=== PATIENT | male | born 1950 | race Caucasian/White ===

== ENCOUNTER 2022-11-02 07:08 | Outpatient (CLI) | payer MEDICARE, BC, SELFPAY | END 2022-11-02 07:09 | disposition home or self-care (01) | LOC: INJ CL 07:11 | PROVIDERS: PCP Family Medicine; Visit Provider Family Medicine | DX: M54.16 Radiculopathy, lumbar region (principal); M51.36 Other intervertebral disc degeneration, lumbar region | CPT/HCPCS: 62323; J0702; Q9966 ==

== ENCOUNTER 2024-01-23 07:39 | Outpatient (CLI) | payer MEDICARE, BC, SELFPAY ==
--- NOTE | 2024-01-23 09:09 | W.ANESCHARGE ---
Anesthesia Charges Start Date/Time Anesthesia Start Date: 01/23/24 Anesthesia Start Time: 08:50 Stop Date/Time Anesthesia Stop Date: 01/23/24 Anesthesia Stop Time: 09:03
--- NOTE | 2024-01-23 09:39 | W.ANESCHARGE ---
Anesthesia Charges Start Date/Time Anesthesia Start Date: 01/23/24 Anesthesia Start Time: 08:50 Stop Date/Time Anesthesia Stop Date: 01/23/24 Anesthesia Stop Time: 09:03 Summary Extremes of Age - Over 70 or under 1: MDA
== END 2024-01-23 07:40 | disposition home or self-care (01) ==
LOC: OP CLINIC 07:40
PROVIDERS: PCP Family Medicine; Visit Provider Internal Medicine Gastroenterology
DX: Z12.11 Encounter for screening for malignant neoplasm of colon (principal); Z86.010 Personal history of colon polyps
CPT/HCPCS: 00811; 00812; 45378; 99100; J2704

== ENCOUNTER 2024-05-08 07:45 | Outpatient (CLI) | payer MEDICARE, BC, SELFPAY | END 2024-05-08 07:46 | disposition home or self-care (01) | LOC: INJ CL 07:46 | PROVIDERS: PCP Family Medicine; Visit Provider Family Medicine | DX: M54.16 Radiculopathy, lumbar region (principal); M51.36 Other intervertebral disc degeneration, lumbar region | CPT/HCPCS: 62323; J0702; Q9966 ==

== ENCOUNTER 2024-05-29 13:00 | Emergency (ER) | payer MEDICARE, BC, SELFPAY ==
[2024-05-29] VITALS (38 sets, daily range): BP systolic 137–170; BP diastolic 81–103; PULSE 100–130; RESP 18–20; TEMP 36.9; O2SAT 93–98; BMI 35.4
[2024-05-29] MEDS: EPINEPHrine 0.3 MG PEN IM (13:05)
[2024-05-29] MEDS: 0.9 % SODIUM CHLORIDE 500 ML 500 ML 1000 ML IV (13:10)
[2024-05-29] MEDS: diphenhydrAMINE 50 MG/ML inj 25 MG IVP (13:13)
[2024-05-29] MEDS: FAMOTIDINE 10 MG/ML inj 20 MG IVP (13:18)
--- NOTE | 2024-05-29 13:19 | ED.ALLEREA ---
HPI - Allergic Reaction General Date Seen: 05/29/24 Chief complaint: Allergic Reaction Stated complaint: swarm of bees - difficulty breathing Time Seen by Provider: 05/29/24 13:19 Source: patient, family and RN notes reviewed Mode of arrival: ambulatory Limitations: no limitations History of Present Illness HPI narrative: Mr. Varela is a 73-year-old gentleman with history of hypertension, hyperlipidemia who is brought to the emergency room by his after being stung multiple times by honey bees. Patient states that he was riding a lawn more near his hive of honey bees and he had a few stings. This was on his face neck and in his scalp. He really did not have a significant reaction and has been stung before without problems. States that he then pauses and when he got back on the lawnmower and turned on a large amount of be came and attacked him. They were mostly in his scalp and he had to run into the shed and put his head in a sink and water in order to get them to go away. He received 2 Benadryl tablets at home but had increasing swelling and stated that it was difficult to swallow. He had swelling around his left eye, pain in his scalp and was feeling discomfort in his abdomen that he stated felt like reflux. He has had a history of reflux and esophagitis but takes omeprazole and this has resolved the issue with a repeat endoscopy that looked much improved. Here in the emergency room Mr. Varela states that his tongue is tingling, he would not be able to swallow any water and he has epigastric discomfort as well as swelling of his face. He has never had an allergic reaction to bee stings in the past. Related Data Home Medications ?Medication ?Instructions ?Recorded ?Confirmed amlodipine 5 mg tablet 5 mg PO DAILY 01/31/23 02/02/23 enalapril 10 1 tab PO DAILY 01/31/23 02/02/23 mg-hydrochlorothiazide 25 mg tablet omeprazole 20 mg capsule,delayed 20 mg PO DAILY 01/31/23 02/02/23 release rosuvastatin 40 mg tablet 40 mg PO DAILY 01/31/23 02/02/23 Previous Rx's ?Medication ?Instructions ?Recorded epinephrine 0.3 mg/0.3 mL 0.3 mg (0.3 mL) IM Q5-15M PRN #2 ea 05/29/24 injection, auto-injector (EpiPen 2-Tj) prednisone 20 mg tablet 20 mg PO BID #8 tabs 05/29/24 Allergies Allergy/AdvReac Type Severity Reaction Status Date / Time atorvastatin Allergy Unknown Verified 05/08/24 08:23 Review of Systems Status of ROS Reports: 10 or more systems reviewed and unremarkable except as noted in History and below [facility] Medical History Lumbar disc herniation ?M51.26 - Other intervertebral disc displacement, lumbar region (ICD-10) Back injury (~2004) ?S39.92XA - Unspecified injury of lower back, initial encounter (ICD-10) GERD (gastroesophageal reflux disease) ?K21.9 - Gastro-esophageal reflux disease without esophagitis (ICD-10) Hypercholesteremia ?E78.00 - Pure hypercholesterolemia, unspecified (ICD-10) Hypertension ?I10 - Essential (primary) hypertension (ICD-10) Surgical History History of arthroscopy of left shoulder (09/12/15) ?Z98.890 - Other specified postprocedural states (ICD-10) Family History Brother Colon cancer Other Lung cancer Social History Narrative: 6 siblings former smoker Smoking Status: Former smoker What tobacco products do you use: cigarettes Smoking quit date/years: >15 years ago Exam Narrative: Exam Narrative: Patient is alert and oriented. He has mild global facial fullness swelling in the periorbital area on the left swelling of his right ear and area of edema in his right posterior scalp. As IVs were being placed I did use a credit card to scrape all areas of exposed skin to ensure removal of the honey bee sting hers. EOM is full. He has some scleral injection on the left. Neck is supple. He has a slight lisp and raspiness of the voice. He has frequent episodes of throat clearing. His heart is with a tachycardic rate around 130 but it is regular. His lungs are clear bilaterally without wheezing. His but abdomen is soft and nontender. He has a rash that is erythematous and light non papular on his left upper thigh and across his upper chest. He is moving all extremities. Const: Vital Signs, click to edit/add: Vital Signs - 24 hr 05/29/24 13:12 05/29/24 13:15 05/29/24 13:18 Temperature 98.5 F Pulse Rate 128 H 123 H Pulse Rate [Pulse Oximeter] 130 H Respiratory Rate 20 Blood Pressure Blood Pressure [Le ft Upper Arm] 160/84 H Pulse Oximetry 95 96 95 Oxygen Delivery Me thod Room Air 05/29/24 13:20 05/29/24 13:30 05/29/24 13:31 Temperature Pulse Rate 122 H 117 H 121 H Pulse Rate [Pulse Oximeter] Respiratory Rate Blood Pressure 144/86 H 147/84 H Blood Pressure [Le ft Upper Arm] Pulse Oximetry 95 96 96 Oxygen Delivery Me thod 05/29/24 13:45 05/29/24 14:00 05/29/24 14:01 Temperature Pulse Rate 118 H 114 H 119 H Pulse Rate [Pulse Oximeter] Respiratory Rate Blood Pressure 144/81 H Blood Pressure [Le ft Upper Arm] Pulse Oximetry 95 96 97 Oxygen Delivery Me thod 05/29/24 14:02 05/29/24 14:15 05/29/24 14:30 Temperature Pulse Rate 114 H 113 H 108 H Pulse Rate [Pulse Oximeter] Respiratory Rate Blood Pressure Blood Pressure [Le ft Upper Arm] Pulse Oximetry 98 96 94 Oxygen Delivery Me thod 05/29/24 14:31 05/29/24 14:45 05/29/24 15:00 Temperature Pulse Rate 109 H 107 H 105 H Pulse Rate [Pulse Oximeter] Respiratory Rate 18 Blood Pressure 139/86 Blood Pressure [Le ft Upper Arm] Pulse Oximetry 95 95 94 Oxygen Delivery Me thod 05/29/24 15:01 05/29/24 15:15 05/29/24 15:30 Temperature Pulse Rate 106 H 104 H 107 H Pulse Rate [Pulse Oximeter] Respiratory Rate Blood Pressure 137/81 Blood Pressure [Le ft Upper Arm] Pulse Oximetry 94 94 95 Oxygen Delivery Me thod 05/29/24 15:31 05/29/24 15:45 05/29/24 16:04 Temperature Pulse Rate 108 H 102 H 112 H Pulse Rate [Pulse Oximeter] Respiratory Rate 18 Blood Pressure 137/102 H Blood Pressure [Le ft Upper Arm] Pulse Oximetry 96 95 96 Oxygen Delivery Me thod 05/29/24 16:07 05/29/24 16:15 05/29/24 16:30 Temperature Pulse Rate 106 H 103 H 107 H Pulse Rate [Pulse Oximeter] Respiratory Rate Blood Pressure 169/89 H Blood Pressure [Le ft Upper Arm] Pulse Oximetry 96 95 93 Oxygen Delivery Me thod 05/29/24 16:31 05/29/24 16:32 05/29/24 16:45 Temperature Pulse Rate 105 H 104 H 107 H Pulse Rate [Pulse Oximeter] Respiratory Rate Blood Pressure 145/95 H Blood Pressure [Le ft Upper Arm] Pulse Oximetry 96 95 95 Oxygen Delivery Me thod Documenting provider has reviewed patient's vital signs: yes Course Course ED Course: At this time patient has sustained multiple honey bee stings with evidence of significant reaction and anaphylaxis given the fact that his voice has been altered and he is having a hard time swallowing. Immediately he is given epinephrine 0.3 mg IM. An IV has been placed in he will receive Pepcid 20 mg, dexamethasone 10 mg, Benadryl 25 mg as he is already taking 50 mg at home as well as 1 L of normal saline. Patient is placed on the teletypesetter monitor. He will be monitored for extended period likely the next 5 hours. Reevaluation(s) Reevaluation #1: Patient noted to be improved with resolution of his throat and tongue symptoms. His left eye is still quite edematous. I do palpate I do not palpate any stingers. Vital Signs Vital signs: Initial Vital Signs Pulse Rate 128 H 05/29/24 13:12 Pulse Oximetry 95 05/29/24 13:12 Vital Signs Pulse Rate 128 H 05/29/24 13:12 Pulse Oximetry 95 05/29/24 13:12 Temperature 98.5 F 05/29/24 13:18 Pulse Rate 107 H 05/29/24 16:45 Respiratory Rate 18 05/29/24 15:45 Blood Pressure 145/95 H 05/29/24 16:31 Pulse Oximetry 95 05/29/24 16:45 Oxygen Delivery Method Room Air 05/29/24 13:18 Medications Administered Medications: Discontinued Medications Generic Name Dose Route Start Last Admin Trade Name Freq PRN Reason Stop Dose Admin Dexamethasone 10 mg 05/29/24 13:20 05/29/24 13:20 Dexamethasone 4 Mg/Ml Vial IV 05/29/24 13:21 10 mg ONCE ONE Administration Diphenhydramine HCl 25 mg 05/29/24 13:20 05/29/24 13:13 Diphenhydramine 50 Mg/Ml Inj IVP 05/29/24 13:21 25 mg ONCE ONE Administration Epinephrine HCl 0.3 mg 05/29/24 13:23 05/29/24 13:05 Epinephrine 0.3 Mg Pen IM 05/29/24 13:24 0.3 mg ONCE ONE Administration Famotidine 20 mg 05/29/24 13:20 05/29/24 13:18 Famotidine 10 Mg/Ml Inj IVP 05/29/24 13:21 20 mg ONCE ONE Administration Sodium Chloride 500 mls @ 1,000 mls/hr 05/29/24 13:20 05/29/24 15:02 0.9 % Sodium Chloride 500 Ml IV 05/29/24 13:49 Infused .Q30M MAX Infusion MDM - Allergic Reaction MDM Narrative Medical decision making narrative: 1. Anaphylaxis-secondary to multiple bee stings. Has not been allergic to bee stings in the past but today had multiple stings in the head ears face. These areas were scraped to remove any stingers. Patient was given epinephrine 0.3 mg IM, 1 L of normal saline, dexamethasone 10 mg, Pepcid IV 20 mg as well as Benadryl 25 mg. At this time at 1707 patient is looking much improved. His facial swelling has almost entirely diminished with the exception of some residual swelling around the left eye. His heart rate is now down at 0107. He is going to be observed in the ED until approximately 1850 hours. He was then be discharged home as long as he does not have recurrence of symptoms. I would like patient to continue an antihistamine in the form of Benadryl or Zyrtec for the next 24 hours. I would like him to start prednisone 20 mg p.o. b.i.d. for 4 days starting tomorrow morning. I have also given a prescription for an EpiPen double pack. It is imperative that he not be around honey bees or get stung. 2. Disposition-home at 1830 if improved. This case was signed out to my colleague Dr. Payam Villegas. Return to the ER for any recurrence of symptoms. Medical Records Attestation: I reviewed the patient's medical records. Lab Data Attestation: I reviewed the patient's lab results. Labs: Lab Results 05/29/24 05/29/24 Range/Units 13:10 14:30 WBC 7.06 (4.50-11.00) K/uL RBC 5.02 (4.30-5.90) m/uL Hgb 16.1 (13.5-17.5) gm/dL Hct 48.7 (37.0-53.0) % MCV 97 (80-100) fL MCH 32 (26-34) pg MCHC 33 (32-36) gm/dL RDW Coeff of Mary Jo 12.6 (11.5-15.5) % Plt Count 191 (140-440) K/uL Neut % (Auto) 67.0 (42.0-72.0) % Lymph % (Auto) 23.9 (20-44) % Kern % (Auto) 7.6 (0.0-11.0) % Eos % (Auto) 1.4 (0.0-7.0) % Baso % (Auto) 0.0 (0.0-3.0) % Neut # (Auto) 4.72 (1.7-7.0) K/uL Lymph # (Auto) 1.69 (0.90-2.90) K/uL Kern # (Auto) 0.50 (0.00-0.90) K/UL Eos # (Auto) 0.10 (0.00-0.50) K/uL Baso # (Auto) 0.00 (0.00-0.30) K/uL Abs Immat Gran (auto) 0.01 (0.00-0.30) K/uL Imm/Tot Granulo (auto) 0.1 % Sodium 137 (135-149) mmol/L Potassium 3.6 (3.6-5.1) mmol/L Chloride 102 (96-114) mmol/L Carbon Dioxide 29 (20-32) mmol/L Anion Gap 6 L (7-15) mEq/L BUN 18 (7-30) mg/dL Creatinine 1.0 (0.5-1.5) mg/dL Estimated Creat Clear 66.77 Estimated GFR 80 ml/min Glucose 157 H (60-115) mg/dL Calcium 9.4 (8.4-10.6) mg/dL Magnesium 1.9 (1.5-2.6) mg/dL Total Bilirubin 0.7 (0.1-1.5) mg/dL AST 40 H (12-35) U/L ALT 49 (4-50) U/L Alkaline Phosphatase 75 (40-150) U/L C-Reactive Protein < 0.5 L (0.5-1.0) mg/dL Total Protein 7.4 (6.0-8.3) g/dL Albumin 4.7 (3.3-5.0) g/dL 25-OH Vitamin D Total 34 (30-80) ng/mL Lab Acknowledgement Test Added ECG Data Interpretation: EKG by my read shows sinus tachycardia at a rate of 1-1. Specific ST abnormality but otherwise no acute changes. QT and NE intervals within normal limits. Critical Care Time Critical Care Time Critical Care Time: Yes Attestation: The patient required my highest level preparedness to intervene emergently and I personally spent this critical care time directly and personally managing the patient. This critical care time included: Obtaining a history; Examining the patient; Pulse oximetry; Ordering and reviewing of studies; Arranging urgent treatment with development of a management plan; Evaluation of patients response to treatment; Frequent reassessment discussions with other providers. This critical care time was performed to assess and manage the high probability of imminent life-threatening deterioration that could result in multiorgan failure. It was exclusive of separate billable procedures and treating other patients and teaching time. Total Critical Care Time in Minutes: 60 Discharge Plan Discharge Clinical Impression: Anaphylaxis Qualifiers: Encounter type: initial encounter Qualified Code(s): T78.2XXA - Anaphylactic shock, unspecified, initial encounter Patient Disposition: Home, Self-Care Condition: Improved Additional Instructions: Medications that I would like you to continue: Continue and antihistamine. You can use Benadryl 2 tablets or 50 mg every 6 hour with your last dose being tomorrow night. Alternatively you may use Zyrtec 10 mg 1 dose tonight and 2 doses tomorrow in the morning and 1 at night. Continue a steroid-this will make your blood sugar go up. Recommend steroid for the next 4 days with your 1st dose starting tomorrow morning. This will be called prednisone. You will need to have an EpiPen available to you during the summer hours when you could be stung by a bee. If you have swelling of your throat, tongue, unusual swelling of the face lips or are rash you may take this medication by injecting into your thigh. Once used you will need to come to the emergency room for further monitoring. Return tonight for worsening symptoms and as needed. Please avoid your honeybees is at this time. Prescriptions: New prednisone 20 mg tablet 20 mg PO BID Qty: 8 0RF Rx Instructions: Take 1st dose tomorrow morning May 30. epinephrine [EpiPen 2-Tj] 0.3 mg/0.3 mL auto-injector 0.3 mg IM Q5-15M PRNQty: 2 0RF Rx Instructions: do not exceed 3 doses per episode No Action rosuvastatin 40 mg tablet 40 mg PO DAILY omeprazole 20 mg capsule,delayed release(DR/EC) 20 mg PO DAILY enalapril-hydrochlorothiazide 10-25 mg tablet 1 tab PO DAILY amlodipine 5 mg tablet 5 mg PO DAILY Follow Up/Referrals: Maurilio Guerrero MD [Primary Care Provider] - Stand Alone Forms: [employer] Info Instructions
[2024-05-29] MEDS: dexAMETHasone 4 MG/ML VIAL 10 MG IV (13:20)
[2024-05-29 13:31] LABS: Eosinophils Percent Auto 1.4 % (0.0-7.0); Hematocrit 48.7 % (37.0-53.0); Hemoglobin* 16.1 gm/dL (13.5-17.5); Immature Granulocytes Abs Auto 0.01 K/uL (0.00-0.30); Immature Granulocytes Pct Auto 0.1 %; Lymphocytes Absolute Auto 1.69 K/uL (0.90-2.90); Lymphocytes Percent Auto 23.9 % (20-44); Mean Corpuscular HGB Conc 33 gm/dL (32-36); Mean Corpuscular Hemoglobin 32 pg (26-34); Mean Corpuscular Volume 97 fL (80-100); Monocytes Percent Auto 7.6 % (0.0-11.0); Neutrophils Absolute Auto 4.72 K/uL (1.7-7.0); Platelet Count* 191 K/uL (140-440); RDW Coefficient of Variation % 12.6 % (11.5-15.5); Red Blood Count 5.02 m/uL (4.30-5.90); White Blood Count* 7.06 K/uL (4.50-11.00)
[2024-05-29 13:35] LABS: Slide Review Reflex No
[2024-05-29 13:45] LABS: Albumin* 4.7 g/dL (3.3-5.0); Chloride* 102 mmol/L (96-114); Sodium* 137 mmol/L (135-149)
[2024-05-29 13:46] LABS: Potassium* 3.6 mmol/L (3.6-5.1)
[2024-05-29 13:48] LABS: Est. Creatinine Clearance* 66.77; Estimated Glomerular Filt Rate 80 ml/min
[2024-05-29 13:49] LABS: Alanine Aminotransferase* 49 U/L (4-50); Alkaline Phosphatase* 75 U/L (40-150); Anion Gap 6 mEq/L (7-15); Aspartate Amino Transferase* 40 U/L (12-35); Bilirubin Total* 0.7 mg/dL (0.1-1.5); Blood Urea Nitrogen* 18 mg/dL (7-30); Calcium* 9.4 mg/dL (8.4-10.6); Carbon Dioxide* 29 mmol/L (20-32); Glucose* 157 mg/dL (60-115); Total Protein* 7.4 g/dL (6.0-8.3)
[2024-05-29 13:53] LABS: C Reactive Protein* < 0.5 mg/dL (0.5-1.0)
[2024-05-29 15:04] LABS: Magnesium* 1.9 mg/dL (1.5-2.6)
[2024-05-29 15:22] LABS: Vitamin D 25 Hydroxy* 34 ng/mL (30-80)
== END 2024-05-29 18:39 | disposition home or self-care (01) ==
PROVIDERS: Family Medicine; Emergency Provider Emergency Medicine; PCP Family Medicine
DX: T63.441A Toxic effect of venom of bees, accidental (unintentional), initial encounter (principal); T78.2XXA Anaphylactic shock, unspecified, initial encounter
CPT/HCPCS: 36415; 80053; 82306; 83735; 85025; 86140; 93005; 96372; 96374; 96375; 99285; 99291; J0171; J1100; J1200; J7030; S0028

== ENCOUNTER 2025-04-05 13:07 | Outpatient (CLI) | payer MEDICARE, BC, SELFPAY ==
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
== END 2025-04-05 13:08 | disposition home or self-care (01) ==
LOC: INJ CL 13:08
PROVIDERS: PCP Family Medicine; Visit Provider Family Medicine
DX: M54.16 Radiculopathy, lumbar region (principal); M51.369 Other intervertebral disc degeneration, lumbar region without mention of lumbar back pain or lower extremity pain
CPT/HCPCS: 62323; J0702; Q9966